=== PATIENT | male | born 1995 | race Hispanic/Latino ===

== ENCOUNTER → 2017-07-01 | Outpatient (CLI) | payer OTHER ==
[2017-07-01 12:21] LABS: BASO % 0.5 % (0.0-1.0); EOS # 0.4 10^3/uL (0.0-0.50); HEMATOCRIT 44.6 % (42.0-52.0); HEMOGLOBIN 15.1 g/dl (13.5-17.5); IMMATURE GRANULOCYTE % 0.5 % (0-3.0); LYMPH # 1.9 10^3/uL (1.5-6.5); LYMPH % 31.9 % (24.0-44.0); MEAN CORPUSCULAR HGB CONC 33.9 g/dl (32.0-36.5); MEAN CORPUSCULAR VOLUME 85.8 fl (80.0-96.0); MONO # 0.6 10^3/uL (0.0-0.8); MONO % 10.6 % (0.0-5.0); NEUTROPHILS % 50.5 % (36.0-66.0); PLATELET COUNT, AUTOMATED 278 10^3/uL (150-450); RED CELL DISTRIBUTION WIDTH 12.4 % (11.5-14.5)
[2017-07-01 12:50] LABS: ANION GAP 3 MEQ/L (8-16); BLOOD UREA NITROGEN 14 MG/DL (7-18); CALCIUM LEVEL 9.1 MG/DL (8.5-10.1); CARBON DIOXIDE LEVEL 32 MEQ/L (21-32); CHLORIDE LEVEL 107 MEQ/L (98-107); GLOMERULAR FILTRATION RATE > 60.0 (>60); GLUCOSE, FASTING 72 MG/DL (70-100); POTASSIUM SERUM 4.6 MEQ/L (3.5-5.1); SODIUM LEVEL 142 MEQ/L (136-145)
== END ==
LOC: M LAB 11:43
DX: Z01.818 Encounter for other preprocedural examination (principal); M20.11 Hallux valgus (acquired), right foot; M79.671 Pain in right foot
CPT/HCPCS: 80048

== ENCOUNTER 2017-07-07 06:11 | Day surgery (SDC) | payer OTHER ==
[2017-07-07] MEDS: LR 1,000 ML IV (06:50)
[2017-07-07] MEDS: VANCOMYCIN HCL 1,000 MG, VIAL MATE ADAPTER 1 EACH in D5W 250 ML IV (06:55)
[2017-07-07] MEDS ORDERED: MIDAZOLAM INJ 2 MG/2 ML VIAL (J2250) As Ordered (07:20)
[2017-07-07] MEDS ORDERED: LIDOCAINE 2% INJ 100 MG/5 ML SDV (FOR ANES.) As Ordered (07:20)
[2017-07-07] MEDS ORDERED: PROPOFOL 200 MG/20 ML VIAL As Ordered ×2 (07:20→08:07)
[2017-07-07] MEDS ORDERED: fentaNYL 100 MCG/2 ML INJECTION (J3010) As Ordered (07:21)
[2017-07-07] MEDS: LIDOCAINE 2% MDV 20 ML VIAL As Ordered (07:34)
[2017-07-07] MEDS: NEOSPORIN GU IRRIG 20 ML VIAL As Ordered (08:20)
[2017-07-07] MEDS: BACITRACIN PWD 50,000 UNITS VIAL As Ordered (08:20)
[2017-07-07] MEDS: dexameTHASONE 4 MG/ML 1ML VIAL (J1100) As Ordered (08:26)
[2017-07-07] MEDS: BUPIVACAINE HCL 0.5% 30 ML VIAL As Ordered (08:26)
== END 2017-07-07 13:00 | disposition home or self-care (01) ==
LOC: M SDC 06:11
DX: M20.11 Hallux valgus (acquired), right foot (principal); M79.671 Pain in right foot; Z88.0 Allergy status to penicillin
CPT/HCPCS: 28296

== ENCOUNTER → 2018-07-12 | Outpatient (CLI) | payer OTHER ==
[~2018-07-12] MED LIST: NAPR-885
[2018-07-12 10:03] LABS: BASO # 0.1 10^3/uL (0.0-0.2); BASO % 0.8 % (0.0-1.0); EOS # 0.3 10^3/uL (0.0-0.50); EOS % 4.5 % (0.0-3.0); HEMATOCRIT 47.3 % (42.0-52.0); HEMOGLOBIN 15.7 g/dl (13.5-17.5); LYMPH # 1.5 10^3/uL (1.5-6.5); LYMPH % 23.6 % (24.0-44.0); MEAN CORPUSCULAR HEMOGLOBIN 29.2 pg (27.0-33.0); MEAN CORPUSCULAR HGB CONC 33.2 g/dl (32.0-36.5); MEAN CORPUSCULAR VOLUME 88.1 fl (80.0-96.0); MONO # 0.5 10^3/uL (0.0-0.8); MONO % 7.5 % (0.0-5.0); PLATELET COUNT, AUTOMATED 282 10^3/uL (150-450); RED BLOOD COUNT 5.37 10^6/uL (4.30-6.10); WHITE BLOOD COUNT 6.3 10^3/uL (4.0-10.0)
[2018-07-12 10:23] LABS: BLOOD UREA NITROGEN 16 MG/DL (7-18); CALCIUM LEVEL 9.3 MG/DL (8.5-10.1); CARBON DIOXIDE LEVEL 31 MEQ/L (21-32); CHLORIDE LEVEL 106 MEQ/L (98-107); CREATININE FOR GFR 0.99 MG/DL (0.70-1.30); GLOMERULAR FILTRATION RATE > 60.0 (>60); GLUCOSE, FASTING 79 MG/DL (70-100); POTASSIUM SERUM 4.3 MEQ/L (3.5-5.1); SODIUM LEVEL 142 MEQ/L (136-145)
== END ==
LOC: M LAB 09:29
PROVIDERS: ATTEND Podiatrist
DX: M20.12 Hallux valgus (acquired), left foot (principal); M79.672 Pain in left foot

== ENCOUNTER 2018-07-13 05:46 | Day surgery (SDC) | payer OTHER ==
[~2018-07-13] VITALS: Ht 170.2 cm; Wt 59.8 kg
[2018-07-13] MEDS ORDERED: LR 1,000 ML IV ONE (06:00)
[2018-07-13] MEDS ORDERED: VANCOMYCIN HCL 1,000 MG, VIAL MATE ADAPTER 1 EACH in D5W 250 ML IV ONE (06:00)
[2018-07-13] MEDS ORDERED: BACITRACIN PWD 50,000 UNITS VIAL As Ordered ONE (07:10)
[2018-07-13] MEDS ORDERED: BUPIVACAINE HCL 0.5% 10 ML VIAL As Ordered ONE (07:10)
[2018-07-13] MEDS ORDERED: dexameTHASONE 4 MG/ML 1ML VIAL (J1100) As Ordered ONE (07:10)
[2018-07-13] MEDS ORDERED: LIDOCAINE 2% MDV 20 ML VIAL As Ordered ONE (07:10)
[2018-07-13] MEDS ORDERED: NEOSPORIN GU IRRIG 20 ML VIAL As Ordered ONE (07:10)
[2018-07-13] MEDS ORDERED: MIDAZOLAM INJ 2 MG/2 ML VIAL (J2250) As Ordered ONE (07:13)
[2018-07-13] MEDS ORDERED: PROPOFOL 200 MG/20 ML VIAL As Ordered ONE ×2 (07:14→08:11)
[2018-07-13] MEDS ORDERED: fentaNYL 100 MCG/2 ML INJECTION (J3010) As Ordered ONE (07:14)
[2018-07-13] MEDS ORDERED: LIDOCAINE 2% INJ 100 MG/5 ML SDV (FOR ANES.) As Ordered ONE (07:17)
[2018-07-13] MEDS ORDERED: KETOROLAC 60 MG/2 ML VIAL (J1885) As Ordered ONE (07:56)
[2018-07-13] MEDS ORDERED: ONDANSETRON 4MG/2ML VIAL (J2405) As Ordered ONE (08:09)
[2018-07-13] MEDS ORDERED: LR 1,000 ML IV SCH (09:15)
[2018-07-13] MEDS ORDERED: ONDANSETRON 4MG/2ML VIAL (J2405) IV PRN (09:15)
--- NOTE | 2018-07-13 09:33 | REP ---
LEFT FOOT, THREE VIEWS: Three portable views of the left foot are performed. Surgical defect is seen in the distal aspect of the 1st metatarsal fixed by a metallic screw. Osseous structures are otherwise intact and well aligned. Joint spaces are unremarkable. Electronically Signed by Elmo De La Vega MD 07/16/2018 05:02 P
[2018-07-13 10:50] VITALS: BP 131/61
--- NOTE | 2018-07-13 18:48 | RO ---
DATE OF PROCEDURE: 07/13/2018 PREPROCEDURE DIAGNOSIS: Hallux valgus metatarsus primus varus deformity left foot. POSTPROCEDURE DIAGNOSIS: Hallux valgus metatarsus primus varus deformity left foot. PROCEDURE: Colton bunionectomy, internal screw fixation 3.0 mm x 24 mm x 1 left foot. SURGEON: Dr. Jamir La DPM CUSTOMER ORDER CLERK: None. ANESTHESIA: Local monitored anesthesia care (MAC). HEMOSTASIS: Ankle pneumatic tourniquet at 250 mmHg for 34 minutes. HARDWARE UTILIZED: Arthrex headless cannulated 3.0 x 24 mm screw. IRRIGATION: Dilute bacitracin, neomycin and polymyxin B solution. DESCRIPTION OF PROCEDURE: On 07/13/2018, this 23-year-old male was taken from his hospital room to the operating room and placed on the operating table in the supine position. Following the induction of intravenous (IV) sedation and local and regional anesthesia, the left lower extremity was prepped and draped in the usual aseptic manner. Ankle pneumatic tourniquet was rapidly inflated. Attention was directed to the patient's left foot where the following procedure was performed: COLTON BUNIONECTOMY, INTERNAL SCREW FIXATION 3.0 mm x 24 mm x 1 LEFT FOOT: Attention was directed to the patient's left foot. There was noted to be a hallux valgus deformity. At this time, a 6 cm incision was placed extending from the distal shaft of the first metatarsal to distal to the first metatarsophalangeal joint medial to the extensor tendon. The incision was deepened through the subcutaneous tissues and all coursing venous tributaries were identified, underscored, clamped, cut, ligated and electrocoagulated as necessary. A linear capsulotomy was performed in the same plane as the original skin incision. The capsular and periosteal structures were then dissected free in one continuous layer dorsally, medially and laterally, thus creating a capsular periosteal-type envelope. This delivered into view the hypertrophied medial eminence of the first metatarsal, which was osteotomized from distal to proximal, through and through and extirpated from the wound in toto. It was medial to the sesamoidal groove. Attention was then directed to the first intermetatarsal space where dissection was carried down to the level of the fibular sesamoid. The conjoined tendon as it inserted into the fibular sesamoid was released along the proximal margin. The sesamoid was then allowed to be mobilized into the head of the first metatarsal. A modified V-shaped osteotomy was then performed with a long plantar and short dorsal wing in the distal metaphysis of the first metatarsal. Upon creation of this osteotomy, the capital fragment was transposed approximately 30-40 percent of the width of the shaft of the first metatarsal and then fixated with a 3.0 x 24 mm headless cannulated compression screw. The screw did not penetrate the inferior cartilage on direct visualization. The redundant cortical spike was osteotomized from dorsal to plantar, through and through and extirpated from the wound. Medial surface was rasped to a smooth contour with a handheld rasp. The wound was flushed with copious amounts of dilute bacitracin, neomycin and polymyxin B solution. Attention was then directed towards closure where the capsular structures were coapted and maintained utilizing #2-0 Monocryl in a simple interrupted type fashion, subcutaneous tissues were coapted and maintained using #4-0 Monocryl in a simple interrupted type fashion. Skin incision was coapted and maintained utilizing #5-0 Monocryl in a continuous subcuticular type fashion. This was additionally reinforced with Steri-Strips. Following the completion of the surgical procedure, 4 mg of dexamethasone sodium phosphate was instilled proximal to the surgical site. Attention was directed towards bandaging where a sterile compressive bandage was applied consisting of Adaptic, 4 x 4's, 4 x 4 splints, Clyde, Kerlix and Coban. The ankle pneumatic tourniquet was rapidly deflated and instantaneous capillary filling time was noted in digits 1 through 5 of the patient's left foot. The patient having apparently tolerated the surgical procedure well was taken from the operating room (OR) to the recovery room, further monitoring by the anesthesia department. Postoperative instructions given upon discharge.
== END 2018-07-13 11:00 | disposition home or self-care (01) ==
LOC: M SDC 05:46
PROVIDERS: ATTEND Podiatrist
DX: M20.12 Hallux valgus (acquired), left foot (principal); Z88.0 Allergy status to penicillin
CPT/HCPCS: 28296; 73630; 88300; C1713; J1100; J1885; J2250; J2405; J3010; J3370